=== PATIENT | female | born 1940 | race Caucasian/White ===

== ENCOUNTER 2021-05-06 04:35 | Inpatient (IN) | payer OTHER ==
[~2021-05-06] VITALS: Ht 157.5 cm; Wt 69.9 kg
[2021-05-06] VITALS (7 sets, daily range): BP systolic 126–178; BP diastolic 54–76
[2021-05-06] MEDS ORDERED: DEXAMETHASONE SOD PHOS 10 MG/1 ML VIAL IV ONE (04:45)
[2021-05-06] MEDS ORDERED: ALBUTEROL/IPRATROPIUM 3 ML NEB NEB ONE ×2 (04:45→07:15)
[2021-05-06] MEDS ORDERED: ALBUTEROL/IPRATROPIUM 3 ML NEB ONE (04:49)
[2021-05-06 04:50] LABS: BASOPHILS # (AUTO) 0.1 (0.0-0.1); EOSINOPHILS # (AUTO) 0.2 (0.0-0.4); EOSINOPHILS % 2.4 % (0.0-6.0); HEMATOCRIT 39.6 % (34.2-44.1); HEMOGLOBIN 12.5 g/dL (12.0-16.0); LYMPHOCYTES # (AUTO) 3.4 (1.0-3.2); MEAN CORPUSCULAR HEMOGLOBIN 30.6 pg (28-32); MEAN CORPUSCULAR HGB CONC 31.6 g/dL (31-35); MEAN CORPUSCULAR VOLUME 97.1 fL (81-99); MONOCYTES # (AUTO) 0.7 (0.2-0.8); NEUTROPHILS # (AUTO) 5.5 (2.1-6.9); NEUTROPHILS % 55.4 % (38.7-80.0); PLATELET COUNT 260 x10e3/uL (140-360); RED BLOOD COUNT 4.08 x10e6/uL (3.6-5.1); RED CELL DISTRIBUTION WIDTH 14.6 % (11.7-14.4)
[2021-05-06 05:10] LABS: ALBUMIN 4.1 g/dL (3.5-5.0); ALBUMIN/GLOBULIN RATIO 1.5 (0.8-2.0); ANION GAP 13.7 mmol/L (8-16); CALCIUM 8.6 mg/dL (8.4-10.2); CREATININE, SERUM 0.87 mg/dL (0.57-1.11); POTASSIUM 4.7 mmol/L (3.5-5.1)
[2021-05-06] MEDS ORDERED: NITROGLYCERIN 2% OINT 1 GM PKT TOP ONE (06:15)
[2021-05-06] MEDS ORDERED: ONDANSETRON HCL INJ 2MG/ML 2ML 2 MG/ML VIAL IV PRN ×2 (06:30→16:45)
[2021-05-06] MEDS ORDERED: FUROSEMIDE INJ 10 MG/ML 4 ML VIAL IV ONE (06:30)
[2021-05-06] MEDS ORDERED: ENALAPRILAT IV INJ 1.25 MG/ML VIAL IV STA (07:21)
[2021-05-06] MEDS ORDERED: ALBUTEROL/IPRATROPIUM 3 ML NEB NEB PRN (07:45)
[2021-05-06] MEDS ORDERED: HYDRALAZINE HCL 20 MG/ML VIAL IV PRN (07:45)
[2021-05-06] MEDS ORDERED: NITROGLYCERIN0.4 MG SL (09:15)
[2021-05-06] MEDS ORDERED: SIMVASTATIN20 MG PO (09:15)
[2021-05-06] MEDS ORDERED: LEVOTHYROXINE50 MCG PO (09:15)
[2021-05-06] MEDS ORDERED: CARVEDILOL12.5 MG PO (09:15)
[2021-05-06] MEDS ORDERED: VASOTEC10 MG PO (09:15)
[2021-05-06] MEDS ORDERED: ASPIRIN CHEW81 MG PO (09:15)
[2021-05-06] MEDS ORDERED: CLOPIDOGREL BISULFATE 75 MG TAB PO ONE (11:45)
[2021-05-06] MEDS ORDERED: NITROGLYCERIN 2% OINT 1 GM PKT TOP SCH (12:00)
[2021-05-06] MEDS ORDERED: ENALAPRIL MALEATE 5 MG TAB PO SCH (17:00)
[2021-05-06] MEDS: CARVEDILOL 12.5 MG TAB PO SCH (17:00)
[2021-05-06] MEDS ORDERED: SIMETHICONE 80 MG CHEW PO PRN (18:15)
[2021-05-06 20:06] LABS: CREATINE KINASE MB 0.7 ng/mL (0-5.0)
[2021-05-06] MEDS: SIMVASTATIN 20 MG TAB PO SCH (21:58)
[2021-05-06] MEDS: ENALAPRIL MALEATE 5 MG TAB PO SCH (21:58)
[2021-05-06] MEDS ORDERED: MELATONIN 5 MG TABLET PO PRN (22:30)
[2021-05-07] VITALS: BP 135/56
[2021-05-07] MEDS: LEVOTHYROXINE SODIUM 50 MCG TAB PO SCH (01:24)
[2021-05-07 01:34] LABS: CREATINE KINASE MB 0.8 ng/mL (0-5.0)
[2021-05-07] MEDS: SODIUM CHLORIDE 0.9% 1000ML 1,000 ML IV SCH ×2 (03:43→14:00)
[2021-05-07 04:00] VITALS: BP 152/67
[2021-05-07 06:09] LABS: BASOPHILS % 0.1 % (0.0-1.0); HEMATOCRIT 34.7 % (34.2-44.1); HEMOGLOBIN 11.1 g/dL (12.0-16.0); LYMPHOCYTES # (AUTO) 1.8 (1.0-3.2); LYMPHOCYTES % 14.7 % (18.0-39.1); MEAN CORPUSCULAR HEMOGLOBIN 30.2 pg (28-32); MEAN CORPUSCULAR VOLUME 94.6 fL (81-99); MONOCYTES # (AUTO) 0.7 (0.2-0.8); MONOCYTES % 5.6 % (4.4-11.3); NEUTROPHILS # (AUTO) 9.8 (2.1-6.9); NEUTROPHILS % 79.2 % (38.7-80.0); PLATELET COUNT 238 x10e3/uL (140-360); RED BLOOD COUNT 3.67 x10e6/uL (3.6-5.1); RED CELL DISTRIBUTION WIDTH 14.3 % (11.7-14.4)
[2021-05-07 07:25] LABS: ALBUMIN 3.5 g/dL (3.5-5.0); ALBUMIN/GLOBULIN RATIO 1.3 (0.8-2.0); ANION GAP 13.9 mmol/L (8-16); CALCIUM 8.7 mg/dL (8.4-10.2); CHOL/HDL RATIO 3.5 (3.0-3.6); CREATININE, SERUM 0.84 mg/dL (0.57-1.11); POTASSIUM 3.9 mmol/L (3.5-5.1)
[2021-05-07 08:00] VITALS: BP 166/89
[2021-05-07] MEDS: CLOPIDOGREL BISULFATE 75 MG TAB PO SCH ×2 (09:00→14:33)
[2021-05-07] MEDS: CARVEDILOL 12.5 MG TAB PO SCH ×2 (09:00→14:32)
[2021-05-07] MEDS: FUROSEMIDE 20 MG TAB PO SCH (09:00)
[2021-05-07] MEDS: ENALAPRIL MALEATE 5 MG TAB PO SCH ×2 (09:00→21:33)
[2021-05-07] MEDS: ASPIRIN 81 MG ENTERIC COATED PO SCH ×2 (09:00→14:33)
[2021-05-07] MEDS ORDERED: MIDAZOLAM HCL 2 MG/2 ML VIAL ONE (10:32)
[2021-05-07] MEDS ORDERED: SODIUM CHLORIDE 0.9% 1000ML 1,000 ML ONE (10:33)
[2021-05-07] MEDS ORDERED: HEPARIN SOD/SOD CHLORIDE 2,000 ML ONE (10:33)
[2021-05-07] MEDS ORDERED: IOPAMIDOL 370 MG/ML 200 ML INFUS..BTL INJ ONE ×2 (10:33→12:30)
[2021-05-07] MEDS ORDERED: LIDOCAINE HCL 2% LOCAL 20 ML VIAL ONE (10:33)
[2021-05-07] MEDS ORDERED: FENTANYL CITRATE/PF 100MCG/2 ML INJ ONE (10:33)
[2021-05-07] MEDS ORDERED: BIVALRIUDIN 250 MG/VIAL VIAL IV ONE (12:22)
[2021-05-07] MEDS ORDERED: SODIUM CHLORIDE 0.9% 50ML 50 ML ONE (12:23)
[2021-05-07 12:52] VITALS: BP 180/71
[2021-05-07] MEDS ORDERED: SODIUM CHLORIDE 0.9% 1000ML 1,000 ML IV SCH (13:00)
[2021-05-07 20:00] VITALS: BP 128/40
[2021-05-07] MEDS: SIMVASTATIN 20 MG TAB PO SCH (21:33)
[2021-05-08] VITALS: BP 132/53
[2021-05-08 04:00] VITALS: BP 147/68
[2021-05-08 05:00] LABS: BASOPHILS # (AUTO) 0.1 (0.0-0.1); BASOPHILS % 0.7 % (0.0-1.0); EOSINOPHILS # (AUTO) 0.3 (0.0-0.4); HEMATOCRIT 33.2 % (34.2-44.1); HEMOGLOBIN 10.6 g/dL (12.0-16.0); LYMPHOCYTES # (AUTO) 2.8 (1.0-3.2); LYMPHOCYTES % 27.4 % (18.0-39.1); MEAN CORPUSCULAR HEMOGLOBIN 30.6 pg (28-32); MEAN CORPUSCULAR HGB CONC 31.9 g/dL (31-35); MONOCYTES # (AUTO) 0.9 (0.2-0.8); MONOCYTES % 8.3 % (4.4-11.3); NEUTROPHILS # (AUTO) 6.2 (2.1-6.9); NEUTROPHILS % 60.3 % (38.7-80.0); PLATELET COUNT 217 x10e3/uL (140-360); RED BLOOD COUNT 3.46 x10e6/uL (3.6-5.1); RED CELL DISTRIBUTION WIDTH 14.9 % (11.7-14.4)
[2021-05-08 05:19] LABS: ANION GAP 11.1 mmol/L (8-16); CALCIUM 7.8 mg/dL (8.4-10.2); CREATININE, SERUM 0.8 mg/dL (0.57-1.11); POTASSIUM 4.1 mmol/L (3.5-5.1)
[2021-05-08] MEDS: LEVOTHYROXINE SODIUM 50 MCG TAB PO SCH (05:34)
[2021-05-08 07:50] VITALS: BP 153/65
[2021-05-08 08:40] VITALS: BP 153/65
[2021-05-08] MEDS ORDERED: ONDANSETRON HCL 4 MG ORAL DISINTEGRATING TAB PO PRN (08:45)
[2021-05-08] MEDS: SODIUM CHLORIDE 0.9% 1000ML 1,000 ML IV SCH ×2 (08:52→10:00)
[2021-05-08] MEDS: CARVEDILOL 12.5 MG TAB PO SCH (08:58)
[2021-05-08] MEDS: ENALAPRIL MALEATE 5 MG TAB PO SCH (08:58)
[2021-05-08] MEDS: CLOPIDOGREL BISULFATE 75 MG TAB PO SCH (08:59)
[2021-05-08] MEDS: ASPIRIN 81 MG ENTERIC COATED PO SCH (08:59)
[2021-05-08] MEDS: FUROSEMIDE 20 MG TAB PO SCH (08:59)
[2021-05-08] MEDS ORDERED: CLOPIDOGREL BISULFATE 75 MG TAB PO SCH (09:00)
[2021-05-08 11:14] VITALS: BP 124/66
[2021-05-08] MEDS ORDERED: PLAVIX75 MG PO (13:46)
[2021-05-08] MEDS ORDERED: FUROSEMIDE20 MG PO (13:46)
== END 2021-05-08 14:45 | disposition home or self-care (01) | DRG 246 ==
LOC: ER 04:44 → ERHOLD 06:41 → MED/SURG 08:07
PROVIDERS: ADMIT Internal Medicine; ATTEND Internal Medicine
PROC: 027035Z Dilation of Coronary Artery, One Artery with Two Drug-eluting Intraluminal Devices, Percutaneous Approach (ICD-10-PCS; principal; 2021-05-07)
PROC: 4A023N7 Measurement of Cardiac Sampling and Pressure, Left Heart, Percutaneous Approach (ICD-10-PCS; 2021-05-07)
PROC: B2111ZZ Fluoroscopy of Multiple Coronary Arteries using Low Osmolar Contrast (ICD-10-PCS; 2021-05-07)
PROC: B2151ZZ Fluoroscopy of Left Heart using Low Osmolar Contrast (ICD-10-PCS; 2021-05-07)
PROC: B2131ZZ Fluoroscopy of Multiple Coronary Artery Bypass Grafts using Low Osmolar Contrast (ICD-10-PCS; 2021-05-07)
DX: I11.0 Hypertensive heart disease with heart failure (principal); I50.21 Acute systolic (congestive) heart failure; I25.810 Atherosclerosis of coronary artery bypass graft(s) without angina pectoris; I16.0 Hypertensive urgency; Z88.2 Allergy status to sulfonamides; I65.23 Occlusion and stenosis of bilateral carotid arteries; E78.00 Pure hypercholesterolemia, unspecified; Z95.1 Presence of aortocoronary bypass graft; I25.10 Atherosclerotic heart disease of native coronary artery without angina pectoris; J44.9 Chronic obstructive pulmonary disease, unspecified; R53.81 Other malaise
CPT/HCPCS: 36415; 51700; 70360; 71045; 80048; 80053; 80061; 82550; 82553; 83735; 83880; 84484; 85025; 92928; 93005; 93306; 93459; 93880; 93925; 94640; 94799; 99152; 99153; 99284; C1725; C1760; C1766; C1769; C1876; C1887; J0583; J1100; J1940; J2001; J2250; J3010; J7030; Q9967; U0002

== ENCOUNTER 2022-09-14 10:06 | Emergency (ER) | payer MEDICARE, OTHER ==
[~2022-09-14] VITALS: Ht 154.9 cm; Wt 70.3 kg
[~2022-09-14 10:06] MED LIST: ASPIRIN CHEW81 MG PO; CARVEDILOL12.5 MG PO; FUROSEMIDE20 MG PO; LEVOTHYROXINE50 MCG PO; NITROGLYCERIN0.4 MG SL; PLAVIX75 MG PO; SIMVASTATIN20 MG PO; VASOTEC10 MG PO
[2022-09-14 10:44] LABS: CLARITY,URINE SL CLOUDY (CLEAR); COLOR,URINE YELLOW (YELLOW)
[2022-09-14 10:45] LABS: KETONES,URINE NEGATIVE (NEGATIVE); LEUKOCYTE ESTERASE ,URINE TRACE (NEGATIVE); NITRITE,URINE NEGATIVE (NEGATIVE); PROTEIN,URINE DIPSTICK NEGATIVE (NEGATIVE); URINE UROBILINOGEN 0.2 mg/dL (0.2 - 1)
[2022-09-14 10:54] LABS: BACTERIA,URINE FEW /HPF; EPITHELIAL CELLS,URINE MODERATE /LPF; WBC,URINE (MAN) 0-5 /HPF (0-5)
[2022-09-14] MEDS ORDERED: NAPROXEN250 MG PO (11:57)
== END 2022-09-14 12:05 | disposition home or self-care (01) ==
LOC: ER 10:13
DX: R30.0 Dysuria (principal); I72.8 Aneurysm of other specified arteries; M54.9 Dorsalgia, unspecified; I10 Essential (primary) hypertension; I25.10 Atherosclerotic heart disease of native coronary artery without angina pectoris; Z95.1 Presence of aortocoronary bypass graft; Z96.653 Presence of artificial knee joint, bilateral
CPT/HCPCS: 74176; 81001; 87086; 99284